=== PATIENT | female | born 1980 | race Caucasian/White ===

== ENCOUNTER 2023-09-29 16:38 | Emergency (ER) | payer MEDICAID ==
[~2023-09-29] VITALS: Ht 167.6 cm; Wt 104.3 kg
[~2023-09-29 16:38] MED LIST: OLAN10TA3 PO
[2023-09-29 16:43] VITALS: BP_SYST 128; PULSE 74; RESP 20; TEMP 97; O2SAT 98
[2023-09-29] MEDS: EPINEPHRINE HCL/PF 1 MG/ML AMP IM ONE (17:33)
[2023-09-29 17:40] LABS: BASOPHILS # (AUTO) 0.1 K/uL (0.0-0.2); BASOPHILS % (AUTO) 0.8 % (0.0-2.0); EOSINOPHILS # (AUTO) 0.2 K/uL (0.0-0.4); EOSINOPHILS % (AUTO) 3.5 % (0.0-4.0); HEMATOCRIT 41.1 % (36-48); HEMOGLOBIN 13.7 g/dL (12.0-16.0); LYMPHOCYTES % (AUTO) 31.1 % (20.5-51.5); MEAN CORPUSCULAR HEMOGLOBIN 28 pg (27-31); MEAN CORPUSCULAR HGB CONC 33 % (32-36); MEAN CORPUSCULAR VOLUME 84 fL (79.0-98.0); MONOCYTES # (AUTO) 0.6 K/uL (0.0-1.0); MONOCYTES % (AUTO) 9.6 % (1.7-9.3); NEUTROPHILS # (AUTO) 3.5 K/uL (1.8-7.7); PLATELET COUNT (AUTO) 231 K/uL (130-430); RED BLOOD CELL COUNT(AUTO) 4.92 MIL/uL (4.2-6.2); RED CELL DISTRIBUTION WIDTH 13.6 % (9.0-15.0); WHITE BLOOD COUNT (AUTO) 6.3 K/uL (4.8-10.8)
[2023-09-29] MEDS ORDERED: NEOM28.37 TP (18:04)
[2023-09-29 18:08] LABS: ALANINE AMINOTRANSFERASE 25 U/L (12-78); ALBUMIN 3.6 g/dL (3.4-4.8); ANION GAP 7 (5-15); ASPARTATE AMINOTRANSFERASE 17 U/L (10-37); CARBON DIOXIDE 29 mmol/L (23-29); CHLORIDE 107 mmol/L (98-107); CREATININE 0.83 mg/dL (0.55-1.30); GFR AFRICAN AMERICAN 96 mL/min (>90); GLUCOSE 96 mg/dL (74-106); POTASSIUM 4.2 mmol/L (3.5-5.1); SODIUM SERUM 143 mmol/L (136-145); TOTAL BILIRUBIN 0.4 mg/dL (0.0-1.0); TOTAL PROTEIN, SERUM 6.8 g/dL (6.4-8.3); UREA NITROGEN, BLOOD 14 mg/dL (8-21)
[2023-09-29 18:10] LABS: GFR NON AFRICAN-AMERICAN 79 mL/min (>90)
[2023-09-29 18:17] LABS: BILIRUBIN,DIRECT 0.1 mg/dL (0.0-0.3); CREATINE KINASE, TOTAL 43 U/L (26-192); FREE T4 (FREE THYROXINE) 0.9 ng/dl (0.8-1.5)
[2023-09-29 18:27] LABS: PROTHROMBIN TIME 10.4 SECS (9.5-12.5)
[2023-09-29 18:43] LABS: ACETONE, SERUM NEGATIVE (NEGATIVE)
[2023-09-29] MEDS ORDERED: CEPH-548 PO (18:53)
[2023-09-29] MEDS: DIPHENHYDRAMINE INJ 50 MG/ML VIAL IM ONE (19:09)
[2023-09-29 19:34] LABS: BILIRUBIN,URINE NEGATIVE (NEGATIVE); BLOOD, URINE NEGATIVE (NEGATIVE); COLOR,URINE YELLOW (YELLOW); GLUCOSE,URINE NEGATIVE (NEGATIVE); KETONES,URINE NEGATIVE (NEGATIVE); LEUKOCYTE ESTERASE ,URINE NEGATIVE (NEGATIVE); NITRITE, URINE NEGATIVE (NEGATIVE); PROTEIN URINE NEGATIVE (NEGATIVE)
[2023-09-29 20:09] LABS: CLARITY/URINE HAZY (CLEAR)
[2023-09-29 20:28] VITALS: BP_SYST 125; PULSE 70; RESP 16; TEMP 98; O2SAT 98
== END 2023-09-29 20:28 | disposition home or self-care (01) ==
LOC: SED 16:38
DX: L55.9 Sunburn, unspecified (principal); L03.818 Cellulitis of other sites; R53.1 Weakness; R42 Dizziness and giddiness; I10 Essential (primary) hypertension; Z79.899 Other long term (current) drug therapy; Z79.2 Long term (current) use of antibiotics
CPT/HCPCS: 99285; 71045; 80076; 80048; 81001; 82009; 82550; 84439; 84443; 85025; 85610; 85730; 84484; 36415; 93005; 96372; 83605; 81003; J1200; J0171

== ENCOUNTER 2023-10-02 18:31 | Emergency (ER) | payer MEDICAID ==
[~2023-10-02] VITALS: Ht 167.6 cm; Wt 104.3 kg
[~2023-10-02 18:31] MED LIST changes: +CEPH-548 PO; +NEOM28.37 TP
[2023-10-02 18:50] VITALS: BP_SYST 144; PULSE 76; RESP 17; TEMP 97.2; O2SAT 95
[2023-10-02 19:36] VITALS: TEMP 98
[2023-10-02] MEDS ORDERED: ONDA8TAB60 PO (20:33)
[2023-10-02 21:22] VITALS: BP_SYST 123; PULSE 74; RESP 16; O2SAT 96
== END 2023-10-02 21:23 | disposition home or self-care (01) ==
LOC: SED 18:31
DX: R42 Dizziness and giddiness (principal); R11.0 Nausea; R53.83 Other fatigue; F17.210 Nicotine dependence, cigarettes, uncomplicated; I10 Essential (primary) hypertension; Z90.49 Acquired absence of other specified parts of digestive tract; Z98.890 Other specified postprocedural states; Z79.899 Other long term (current) drug therapy; Z79.2 Long term (current) use of antibiotics
CPT/HCPCS: 99283

== ENCOUNTER 2023-11-21 21:31 | Emergency (ER) | payer MEDICAID ==
[~2023-11-21] VITALS: Ht 167.6 cm; Wt 97.5 kg
[~2023-11-21 21:31] MED LIST changes: +ONDA8TAB60 PO
[2023-11-21 21:48] VITALS: BP_SYST 113; PULSE 106; RESP 0; TEMP 98; O2SAT 95
[2023-11-21 22:47] LABS: BASOPHILS # (AUTO) 0.1 K/uL (0.0-0.2); BASOPHILS % (AUTO) 0.5 % (0.0-2.0); EOSINOPHILS # (AUTO) 0.1 K/uL (0.0-0.4); EOSINOPHILS % (AUTO) 1.5 % (0.0-4.0); HEMATOCRIT 45.3 % (36-48); HEMOGLOBIN 15.2 g/dL (12.0-16.0); LYMPHOCYTES # (AUTO) 0.9 K/uL (1.0-5.5); LYMPHOCYTES % (AUTO) 10.2 % (20.5-51.5); MEAN CORPUSCULAR HEMOGLOBIN 28 pg (27-31); MEAN CORPUSCULAR HGB CONC 34 % (32-36); MEAN CORPUSCULAR VOLUME 84 fL (79.0-98.0); MONOCYTES # (AUTO) 0.6 K/uL (0.0-1.0); MONOCYTES % (AUTO) 6.7 % (1.7-9.3); NEUTROPHILS # (AUTO) 7.5 K/uL (1.8-7.7); NEUTROPHILS % (AUTO) 81.1 % (40.0-70.0); PLATELET COUNT (AUTO) 189 K/uL (130-430); RED BLOOD CELL COUNT(AUTO) 5.38 MIL/uL (4.2-6.2); WHITE BLOOD COUNT (AUTO) 9.3 K/uL (4.8-10.8)
[2023-11-21 23:02] LABS: ALBUMIN 4.5 g/dL (3.4-4.8); BILIRUBIN,DIRECT 0.1 mg/dL (0.0-0.3); CALCIUM 9.8 mg/dL (8.4-11.0); CREATININE 1.37 mg/dL (0.55-1.30); POTASSIUM 4.2 mmol/L (3.5-5.1); TOTAL BILIRUBIN 0.5 mg/dL (0.0-1.0); TOTAL PROTEIN, SERUM 8.1 g/dL (6.4-8.3)
[2023-11-21 23:04] LABS: BILIRUBIN,URINE 1+ (NEGATIVE); BLOOD, URINE NEGATIVE (NEGATIVE); CLARITY/URINE CLEAR (CLEAR); COLOR,URINE YELLOW (YELLOW); GLUCOSE,URINE NEGATIVE (NEGATIVE); KETONES,URINE TRACE (NEGATIVE); LEUKOCYTE ESTERASE ,URINE NEGATIVE (NEGATIVE); NITRITE, URINE NEGATIVE (NEGATIVE); PROTEIN URINE NEGATIVE (NEGATIVE); UROBILINOGEN,URINE 0.2 (0.2-1.0)
[2023-11-21 23:22] LABS: BACTERIA,URINE RARE /HPF (None Seen)
[2023-11-21] MEDS: ALBUTEROL SULFATE 0.083% 2.5 MG/3 ML VIAL.NEB INH ONE (23:42)
[2023-11-22] MEDS: MAG-AL HYDROX/SIMETH 30 ML UDC PO ONE (00:01)
[2023-11-22] MEDS: ONDANSETRON 4 MG ODT TAB PO ONE (03:04)
[2023-11-22] MEDS ORDERED: ONDA-8 TL (03:05)
[2023-11-22] MEDS ORDERED: NITR-85 PO (03:05)
[2023-11-22 04:13] VITALS: BP_SYST 103; PULSE 100; RESP 18; TEMP 98.6; O2SAT 94
== END 2023-11-22 04:13 | disposition home or self-care (01) ==
LOC: SED 21:31
DX: N39.0 Urinary tract infection, site not specified (principal); F41.1 Generalized anxiety disorder; F17.210 Nicotine dependence, cigarettes, uncomplicated; R51.9 Headache, unspecified; I10 Essential (primary) hypertension; Z79.899 Other long term (current) drug therapy; Z79.2 Long term (current) use of antibiotics
CPT/HCPCS: 99285; 71045; 80076; 80048; 81001; 85025; 85379; 36415; 94640; 81025; 70450; Q0162; 81000; 81015